=== PATIENT | female | born 1990 | race Caucasian/White ===

== ENCOUNTER 2023-12-22 12:23 | Emergency (ER) | payer OTHER ==
[~2023-12-22] VITALS: Ht 162.5 cm; Wt 145.1 kg
[~2023-12-22 12:23] MED LIST: BIAXIN500 MG PO; CLARITIN10 MG PO; CORTISPORIN 1%-10 M1 OT
[2023-12-22] MEDS ORDERED: NALTREXONE50 MG PO (12:31)
[2023-12-22] MEDS ORDERED: DULOXETINE HCL60 MG PO (12:31)
[2023-12-22] MEDS ORDERED: ALBUTEROL HFA 90 MCG (12:32)
[2023-12-22] MEDS ORDERED: ANORO ELLIPTA1 EACH INH (12:32)
[2023-12-22] MEDS ORDERED: SEPTDS PO (12:45)
[2023-12-22] MEDS ORDERED: Tdap Vaccine 0.5 ML SYR (Adult Vaccine) IM ONE (12:45)
== END 2023-12-22 13:23 | disposition home or self-care (01) ==
LOC: ED 12:23
DX: L03.011 Cellulitis of right finger (principal); Z79.899 Other long term (current) drug therapy